=== PATIENT | male | born 1950 | race Caucasian/White ===

== ENCOUNTER 2023-04-03 22:32 | Emergency (ER) | payer MEDICARE, SELFPAY ==
[2023-04-03] VITALS (11 sets, daily range): BP systolic 138–164; BP diastolic 89–93; PULSE 97–105; RESP 10–27; TEMP 36.5; O2SAT 93–99
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
[2023-04-03] MEDS: Acetaminophen 500 MG TAB PO (22:55)
[2023-04-03] MEDS: Ketorolac 15 MG/ML VIAL IM (22:55)
[2023-04-04] VITALS: PULSE 103; RESP 15; O2SAT 97
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
[2023-04-04 00:10] VITALS: PULSE 98; RESP 20; O2SAT 94
[2023-04-04 00:20] VITALS: PULSE 100; RESP 22
[2023-04-04 00:30] VITALS: PULSE 102; RESP 24
[2023-04-04 00:37] VITALS: BP 101/61; PULSE 105; O2SAT 96
[2023-04-04 01:00] VITALS: BP 101/61; PULSE 105; RESP 24; TEMP 36.5; O2SAT 96
--- NOTE | 2023-04-04 06:02 | NUR.NOTE ---
declined knee immobilizer. has slept in room 2 since discharge. will call friends up in [place] to come and get him at 0700.Nursing Note:
[2023-04-04] MEDS: Ibuprofen 400 MG TAB PO (06:26)
== END 2023-04-04 07:08 | disposition home or self-care (01) ==
PROVIDERS: Emergency Provider Student in an Organized Health Care Education/Training Program
DX: S70.12XA Contusion of left thigh, initial encounter (principal); S00.01XA Abrasion of scalp, initial encounter; I25.10 Atherosclerotic heart disease of native coronary artery without angina pectoris; I10 Essential (primary) hypertension; Z95.1 Presence of aortocoronary bypass graft; Z79.82 Long term (current) use of aspirin; V48.5XXA Car driver injured in noncollision transport accident in traffic accident, initial encounter
CPT/HCPCS: 73552; 96372; 99283; J1885